=== PATIENT | male | born 1995 ===

== ENCOUNTER 2018-06-08 02:04 | Emergency (ER) | payer SELFPAY ==
[2018-06-08] MEDS ORDERED: Lidocaine 2% VISCOUS* 15 ML UDC PO ONE (02:33)
[2018-06-08] MEDS ORDERED: Dexamethasone TAB* 4 MG PO ONE (02:33)
[2018-06-08 03:04] VITALS: BP 160/97
--- NOTE | 2018-06-08 04:29 | ED ---
Respiratory - HPI Summary HPI Summary: A 23 y/o male presents to [facility] c/o an inflamed throat from a Thieves essential oil spray an hour ago. He was coughing but denies nausea or vomiting. - History of Current Complaint Chief Complaint: EDShortnessOfBreath Stated Complaint: THROAT PAIN Time Seen by Provider: 06/08/18 02:22 Onset/Duration: Sudden Onset, Lasting Hours, Still Present Initial Severity: Moderate Current Severity: Moderate Pain Intensity: 3 Character: Cough (Nonproductive) - Allergy/Home Medications Allergies/Adverse Reactions: Allergies Allergy/AdvReac Type Severity Reaction Status Date / Time No Known Allergies Allergy Verified 05/06/18 14:08 PMH/Surg Hx/FS Hx/Imm Hx Endocrine/Hematology History: Denies: Hx Diabetes Cardiovascular History: Denies: Hx Hypertension Infectious Disease History: No Infectious Disease History: Denies: Traveled Outside the [place] in Last 30 Days - Family History Known Family History: Negative: Diabetes, Blood Disorder - Social History Alcohol Use: None Hx Substance Use: No Substance Use Type: Reports: None Hx Tobacco Use: No Smoking Status (MU): Never Smoked Tobacco Review of Systems Negative: Fever Positive: Cough Negative: Vomiting, Nausea All Other Systems Reviewed And Are Negative: Yes Physical Exam - Summary Physical Exam Summary: VITAL SIGNS: Reviewed. GENERAL: Patient is a well-developed and nourished MALE who is lying comfortable in the stretcher. Patient is not in any acute respiratory distress. HEAD AND FACE: No signs of trauma. No ecchymosis, hematomas or skull depressions. No sinus tenderness. EYES: PERRLA, EOMI x 2, No injected conjunctiva, no nystagmus. EARS: Hearing grossly intact. Ear canals and tympanic membranes are within normal limits. MOUTH: Oropharynx within normal limits. NECK: Supple, trachea is midline, no adenopathy, no JVD, no carotid bruit, no c- spine tenderness, neck with full ROM. CHEST: Symmetric, no tenderness at palpation LUNGS: Clear to auscultation bilaterally. No wheezing or crackles. CVS: Regular rate and rhythm, S1 and S2 present, no murmurs or gallops appreciated. ABDOMEN: Soft, non-tender. No signs of distention. No rebound no guarding, and no masses palpated. Bowel sounds are normal. EXTREMITIES: FROM in all major joints, no edema, no cyanosis or clubbing. NEURO: Alert and oriented x 3. No acute neurological deficits. Speech is normal and follows commands. SKIN: Dry and warm Triage Information Reviewed: Yes Vital Signs On Initial Exam: Initial Vitals Temp Pulse Resp BP Pulse Ox 98.1 F 68 15 161/105 99 06/08/18 02:09 06/08/18 02:09 06/08/18 02:09 06/08/18 02:09 06/08/18 02:09 Vital Signs Reviewed: Yes Diagnostics - Vital Signs Vital Signs Temp Pulse Resp BP Pulse Ox 06/08/18 03:03 98.1 F 76 16 160/97 100 06/08/18 02:09 98.1 F 68 15 161/105 99 - Laboratory Lab Statement: Any lab studies that have been ordered have been reviewed, and results considered in the medical decision making process. Disposition - Course Course Of Treatment: A 23 y/o male [facility] [place] infl[place] throat from a Thieves spray an hour ago. He was coughing but denies nausea or vomiting. He was diagnosed with pharyngitis and will be discharged. The patient is agreeable with this plan. - Diagnoses Provider Diagnoses: Pharyngitis Discharge - Sign-Out/Discharge Documenting (check all that apply): Patient Departure - DC - Discharge Plan Condition: Stable Disposition: HOME Patient Education Materials: Pharyngitis (ED) Referrals: [facility] [place] PHYSICIAN REFERRAL [Outside] (2-3 days) Additional Instructions: RETURN TO THE EMERGENCY DEPARTMENT FOR CHANGING OR WORSENING SYMPTOMS. FOLLOW UP WITH PCP IN 1-2 DAYS. - Attestation Statements Document Initiated by Scribe: Yes Documenting Scribe: Zach Jarquin Provider For Whom Scribe is Documenting (Include Credential): Svetlana Coates MD Scribe Attestation: Zach Marques, scribed for Svetlana Coates MD on 06/08/18 at 0438.
== END 2018-06-08 03:03 | disposition home or self-care (01) ==
LOC: ED 02:04
DX: J02.9 Acute pharyngitis, unspecified (principal); R05 Cough
CPT/HCPCS: 99282; J8540